=== PATIENT | female | born 1945 | race Caucasian/White ===

== ENCOUNTER → 2016-10-14 | Outpatient (CLI) | payer MEDICARE, BC ==
[2016-10-14 11:57] LABS: Blood Urea Nitrogen 24 mg/dL (7-17); Non-African American GFR(MDRD) 59 (>60 ml/min/1.73 sqM)
== END | disposition home or self-care (01) ==
LOC: RADMRIMAIN 11:12
PROVIDERS: ATTEND Physical Medicine & Rehabilitation
DX: M48.06 Spinal stenosis, lumbar region (principal); M47.817 Spondylosis without myelopathy or radiculopathy, lumbosacral region; M47.894 Other spondylosis, thoracic region; M41.24 Other idiopathic scoliosis, thoracic region; M54.5 Low back pain; M54.6 Pain in thoracic spine; Z85.6 Personal history of leukemia; Z96.653 Presence of artificial knee joint, bilateral
CPT/HCPCS: 36415; 82565; 84520

== ENCOUNTER → 2018-04-06 | Outpatient (CLI) | payer MEDICARE, BC ==
--- NOTE | 2018-04-06 17:18 | US ---
EXAMINATION TYPE: US venous doppler duplex LE RT DATE OF EXAM: 04/06/2018 5:02 PM COMPARISON: NONE CLINICAL HISTORY: I82.401 Deep vein thrombosis right leg. Very limited scan large body habitus SIDE PERFORMED: rt TECHNIQUE: The lower extremity deep venous system is examined utilizing real time linear array sonog erma with graded compression, doppler sonography and color-flow sonography. VESSELS IMAGED: External Iliac Vein (EIV) Common Femoral Vein Deep Femoral Vein Greater Saphenous Vein * Femoral Vein Popliteal Vein Small Saphenous Vein * ) FINDINGS: Grayscale, color doppler, spectral doppler imaging performed of the deep veins of the lower extremities. There is normal flow, compressibility, vascular waveforms. IMPRESSION: NEGATIVE FOR DVT, RIGHT LOWER EXTREMITY.
== END | disposition home or self-care (01) ==
LOC: RADUSWWP 16:35
PROVIDERS: ATTEND Family Medicine
DX: Z09 Encounter for follow-up examination after completed treatment for conditions other than malignant neoplasm (principal); Z86.718 Personal history of other venous thrombosis and embolism

== ENCOUNTER → 2019-02-06 | Outpatient (CLI) | payer MEDICARE, BC ==
--- NOTE | 2019-02-06 16:06 | CT ---
EXAMINATION TYPE: CT abdomen pelvis w con DATE OF EXAM: 02/06/2019 COMPARISON: 08/13/2011 HISTORY: 73-year-old female with left paraaortic adenopathy TECHNIQUE: Contiguous axial scanning of the abdomen and pelvis following administration of 100 ml Iso hossein 300 IV contrast. Delayed images through the kidneys and coronal/sagittal reconstructions perform ed. CT DLP: 4032.1 mGycm Automated exposure control for dose reduction was used. FINDINGS: Heart mildly enlarged. No pericardial effusion. Strandy atelectasis in the lower lungs. No pleural ef fusion. No focal liver lesion or biliary ductal dilatation. Gallstones pack the gallbladder lumen. No abnormal gallbladder distention. Adrenal glands, kidneys, and atrophic pancreas show no gross adenopathy. No excretion of contrast on the delayed kidney images. This should be correlated with patient's kidney function. Spleen remains enlarged measuring 16.1 cm. Multiple splenic lesions seen previously are not as well d emonstrated on the current exam. Some calcifications are again noted at the upper pole. 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 There is corresponding left perinephric lymphadenopathy particularly at the level of the kidneys kera uring up to 2.1 cm short axis, refer to coronal image 56 and axial image 41. Some of these lymph node s are difficult to distinguish between tortuous vasculature but the overall appearance is unchanged f rom 08/13/2011 suggesting a benign etiology. Retroaortic left renal vein. Moderate atherosclerotic calcifications abdominal aorta. Moderate stool burden. No pericolonic inflammatory change. No dilated small bowel, free fluid, or free air. Mildly enlarged external iliac chain lymph nodes measuring up to 1.1 cm remain unchanged. The bladder is urine distended. Uterus surgically absent. Both ovaries are visualized. Pelvic phleboliths. No ab normal fluid collection in the pelvis. Bones: Mild degenerative changes at the hips. Additional degenerative changes at the SI joints. Sever e endplate deformity of L4 seems new from 2010. Mild superior endplate deformity of L2 also appears n ew from 2010 and is age-indeterminate, suspected of acute or chronic given the lack of surrounding sw elling. IMPRESSION: 1. 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 MULTIPLE SPLENIC LESIONS SEEN PREVIOUSLY IN 2010 AR E NOT WELL-DEMONSTRATED ON THE CURRENT EXAM. 2. UPPER RETROPERITONEAL LYMPHADENOPATHY MEASURING UP TO 2.1 CM SHORT AXIS ALSO REMAINS RELATIVELY UN CHANGED. THE EXACT ETIOLOGY REMAINS UNCERTAIN BUT STABILITY FROM 2011 SUGGESTS A BENIGN PROCESS. 3. ADDITIONAL NODULARITY ALONG THE LEFT RETROPERITONEUM CORRESPONDS TO DILATED AND TORTUOUS IMV WHICH IS ALSO STABLE. SOME OF THE NODULARITY IS DIFFICULT TO DISTINGUISH BETWEEN VASCULATURE AND LYMPH NOD ES. 4. NUMEROUS GALLSTONES PACKING THE GALLBLADDER LUMEN. 5. NO EXCRETION OF CONTRAST FROM THE KIDNEYS ON THE DELAYED KIDNEY IMAGES. CORRELATE WITH PATIENT'S K IDNEY FUNCTION TO EXCLUDE BLAIRE OR CONTRAST NEPHROPATHY.
== END | disposition home or self-care (01) ==
LOC: RADCTMAIN 12:40
PROVIDERS: ATTEND Family Medicine
DX: K80.20 Calculus of gallbladder without cholecystitis without obstruction (principal); R16.1 Splenomegaly, not elsewhere classified; R59.0 Localized enlarged lymph nodes
CPT/HCPCS: 82565; 84520; 74177; 36415; Q9967